=== PATIENT | male | born 1970 | race Caucasian/White ===

== ENCOUNTER 2017-05-01 15:50 | Emergency (ER) | payer MEDICAID ==
[~2017-05-01] VITALS: Ht 170.2 cm; Wt 68.0 kg
[2017-05-01 15:53] VITALS: BP 120/81
== END 2017-05-01 22:14 | disposition left against medical advice (07) ==
LOC: ER 15:50
DX: Z53.21 Procedure and treatment not carried out due to patient leaving prior to being seen by health care provider (principal)

== ENCOUNTER 2017-05-02 14:54 | Inpatient (IN) | payer MEDICAID ==
[~2017-05-02] VITALS: Ht 170.2 cm; Wt 68.0 kg
[2017-05-02] MEDS ORDERED: SODIUM CHLORIDE 0.9% 500 ML IV ONE (18:30)
[2017-05-02] MEDS ORDERED: MORPHINE SULFATE 2 MG/ML CPJ (NOT FOR IM USE) IV ONE (18:45)
[2017-05-02 21:54] LABS: BASOPHILS % 0.3 % (0.0-2.0); EOSINOPHILS % 0.7 % (0.0-5.0); HEMATOCRIT. 37.5 % (42.0-52.0); HEMOGLOBIN. 12.3 g/dL (14.0-18.0); INR 1.1; MEAN CORPUSCULAR HEMOGLOBIN 25.6 pg (28.0-32.0); MEAN CORPUSCULAR VOLUME 77.9 fL (80.0-94.0); MEAN PLATELET VOLUME 7.5 fl (7.4-10.4); MONOCYTES % 10.9 % (2.0-8.0); NEUTROPHILS % 78.1 % (40.0-76.0); PLATELET 312 x1000/uL (130-400); PROTHROMBIN TIME 11.2 sec; RED BLOOD CELL COUNT 4.81 mill/uL (4.7-6.1); RED CELL DISTRIBUTION WIDTH 16.1 % (11.6-14.6)
[2017-05-02 21:57] LABS: CARBON DIOXIDE 25 mEq/L (21-32); CHLORIDE 97 mEq/L (98-107)
[2017-05-02 22:04] LABS: TROPONIN I < 0.02 ng/mL (0.00-0.04)
[2017-05-02 22:25] LABS: HEPATITIS B SURFACE ANTIGEN NEGATIVE
[2017-05-02 22:53] LABS: HEPATITIS B CORE AB IGM NEGATIVE
[2017-05-02 22:55] LABS: HEPATITIS A AB IGM NEGATIVE (NEGATIVE)
[2017-05-03] MEDS ORDERED: LEVOFLOXACIN 500MG PREMIX 100 ML IV ONE (01:00)
[2017-05-03] MEDS ORDERED: PIPERACILLIN/TAZ 2.25G PREMIX 50 ML IV ONE (01:00)
[2017-05-03 01:48] LABS: CLARITY URINE CLEAR (CLEAR); COLOR URINE DARK YELLOW (YELLOW); GLUCOSE URINE NEGATIVE (NEGATIVE); KETONES URINE NEGATIVE (NEGATIVE); LEUKOCYTE ESTERASE URINE NEGATIVE (NEGATIVE); NITRITE URINE NEGATIVE (NEGATIVE); OCCULT BLOOD URINE NEGATIVE (NEGATIVE); PH URINE 7.5 (4.5-8.0); PROTEIN URINE NEGATIVE (NEGATIVE); SPECIFIC GRAVITY URINE 1.018 (1.005-1.030)
[2017-05-03 02:15] LABS: *AMPHETAMINES SCREEN URINE NEGATIVE (NEGATIVE); *BARBITURATES SCREEN URINE NEGATIVE (NEGATIVE); *BENZODIAZEPINES SCREEN URINE NEGATIVE (NEGATIVE); *COCAINE SCREEN URINE NEGATIVE (NEGATIVE); CANNABINOID URINE SCREEN NEGATIVE (NEGATIVE); METHADONE URINE SCREEN NEGATIVE (NEGATIVE); OPIATES URINE SCREEN PRESUMTIVE POSITIVE (NEGATIVE); PHENCYCLIDINE URINE SCREEN NEGATIVE (NEGATIVE)
[2017-05-03] MEDS ORDERED: PIPERACILLIN/TAZ 2.25G PREMIX 50 ML IV NR (04:30)
[2017-05-03 05:00] VITALS: BP 115/77
[2017-05-03 05:04] VITALS: BP 115/77
[2017-05-03] MEDS ORDERED: ACETAMINOPHEN 325MG TABLET PO PRN (05:45)
[2017-05-03] MEDS ORDERED: HYDROCODONE/ACETAMINOPHEN 10/325MG TABLET PO PRN (05:45)
[2017-05-03] MEDS: PIPERACILLIN/TAZ 3.375G PREMIX 50 ML IV SCH ×3 (13:53→23:54)
[2017-05-03 14:25] VITALS: BP 117/70
[2017-05-03 16:00] VITALS: BP 114/72
[2017-05-03 17:02] LABS: BASOPHILS % 0.6 % (0.0-2.0); EOSINOPHILS % 0.9 % (0.0-5.0); HEMATOCRIT. 37.5 % (42.0-52.0); HEMOGLOBIN. 12.4 g/dL (14.0-18.0); LYMPHOCYTES % 7.9 % (20.0-50.0); MEAN CORPUSCULAR HEMOGLOBIN 25.9 pg (28.0-32.0); MEAN CORPUSCULAR VOLUME 78.2 fL (80.0-94.0); MEAN PLATELET VOLUME 7.7 fl (7.4-10.4); MONOCYTES % 10.4 % (2.0-8.0); NEUTROPHILS % 80.2 % (40.0-76.0); PLATELET 361 x1000/uL (130-400); RED CELL DISTRIBUTION WIDTH 16.5 % (11.6-14.6)
[2017-05-03 17:07] LABS: CARBON DIOXIDE 27 mEq/L (21-32); CHLORIDE 99 mEq/L (98-107)
[2017-05-03] MEDS ORDERED: LIDOCAINE HCL 1% 20ML VIAL (Pyxis) INJ INFIL NR (17:15)
[2017-05-03] MEDS: OXYCODONE HCL/ACETAMINOPHEN 5/325MG TABLET PO PRN (18:27)
[2017-05-03 20:00] VITALS: BP 119/71
[2017-05-03] MEDS: KETOROLAC 30MG/ML VIAL IV PRN (22:16)
[2017-05-04] VITALS: BP 105/62
[2017-05-04 04:00] VITALS: BP 121/64
[2017-05-04] MEDS: OXYCODONE HCL/ACETAMINOPHEN 5/325MG TABLET PO PRN (04:06)
[2017-05-04] MEDS: PIPERACILLIN/TAZ 3.375G PREMIX 50 ML IV SCH (05:25)
[2017-05-04 08:00] VITALS: BP 108/59
[2017-05-04 08:21] VITALS: BP 108/59
[2017-05-04] MEDS: KETOROLAC 30MG/ML VIAL IV PRN (08:21)
== END 2017-05-04 09:51 | disposition left against medical advice (07) | DRG 364 ==
LOC: ER 14:54 → 8WST 05-03 02:01 → EDBEDREQ 05-03 02:13 → CANRESERV 05-03 03:35 → ENRESERV 05-03 03:35
PROVIDERS: ADMIT Family Medicine; ATTEND Family Medicine
PROC: 0J9D0ZZ Drainage of Right Upper Arm Subcutaneous Tissue and Fascia, Open Approach (ICD-10-PCS; principal; 2017-05-04)
DX: L02.413 Cutaneous abscess of right upper limb (principal); E43 Unspecified severe protein-calorie malnutrition; E87.8 Other disorders of electrolyte and fluid balance, not elsewhere classified; K74.60 Unspecified cirrhosis of liver; E86.0 Dehydration; E87.1 Hypo-osmolality and hyponatremia; E83.51 Hypocalcemia; F11.10 Opioid abuse, uncomplicated; L03.113 Cellulitis of right upper limb; B19.20 Unspecified viral hepatitis C without hepatic coma; D64.9 Anemia, unspecified; Z88.0 Allergy status to penicillin; Z88.1 Allergy status to other antibiotic agents; Z87.440 Personal history of urinary (tract) infections
CPT/HCPCS: 36415; 71010; 80048; 80053; 80305; 81003; 83036; 83605; 83880; 84484; 85025; 85610; 85651; 86705; 86709; 86803; 87040; 87086; 87186; 87340; 93005; 93970; 96361; 96365; 96375; 99285; C1893; J1885; J1956; J2270; J2543; J3490; J7030; J7040; J7050